=== PATIENT | male | born 1955 | race Two or more races ===

== ENCOUNTER → 2019-07-14 | Day surgery (SDC) | payer OTHER ==
[2019-07-11 11:35] LABS: BASOPHILS % 0.4 % (0.0-1.0); EOSINOPHILS # (AUTO) 0.1 (0.0-0.4); EOSINOPHILS % 1.3 % (0.0-6.0); HEMOGLOBIN 13.7 g/dL (14.0-18.0); LYMPHOCYTES # (AUTO) 1.9 (1.0-3.2); MEAN CORPUSCULAR HEMOGLOBIN 31.8 pg (28-32); MEAN CORPUSCULAR HGB CONC 34.3 g/dL (31-35); MEAN CORPUSCULAR VOLUME 92.8 fL (81-99); MONOCYTES # (AUTO) 0.5 (0.2-0.8); MONOCYTES % 7.6 % (4.4-11.3); NEUTROPHILS # (AUTO) 4.3 (2.1-6.9); NEUTROPHILS % 63.3 % (38.7-80.0); PLATELET COUNT 224 x10e3/uL (140-360); RED BLOOD COUNT 4.31 x10e6/uL (4.3-5.7); RED CELL DISTRIBUTION WIDTH 11.9 % (11.7-14.4)
[~2019-07-14] MED LIST: FENTANYL CITRATE/PF 100MCG/2 ML INJ ONE; HYOSCYAMINE 0.125 MG TAB ONE; LISINOPRIL10 MG PO; MIDAZOLAM HCL 2 MG/2 ML VIAL ONE; PRAVASTATIN SOD40 MG PO; PROPOFOL IV EMULSION 10 MG/ML 50 ML VIAL ONE
[2019-07-14 09:10] VITALS: BP 144/78
--- NOTE | 2019-07-14 09:20 | Operative Report ---
DATE OF PROCEDURE: 07/14/2019 SURGEON: Norm Bautista MD PROCEDURE: Colonoscopy with polypectomy. INDICATIONS FOR COLONOSCOPY: Rectal bleeding. MEDICATIONS: The patient was done under MAC. Please see anesthesiologist's note. PROCEDURE IN DETAIL: With the patient in left lateral decubitus position, a flexible fiberoptic Olympus colonoscope was inserted into the rectum with ease and advanced all the way to the cecum. An approximately 1.5 cm sessile polypoid lesion was noted in the cecum that was removed per hot snare polypectomy and site was hemoclipped x3. The scope was then withdrawn slowly. An approximately 4 mm sessile polyp was noted in the mid ascending colon, that was removed per hot biopsy forceps. The transverse and descending as well as the sigmoid appeared to be within normal limits. An approximately 1.3 cm sessile polyp in the proximal rectum was removed per hot snare polypectomy. The scope was then retroflexed into the distal rectum and post surgical changes were noted. The patient is status post hemorrhoidectomy. The scope was then straightened out it was subsequently withdrawn and an ulcer was noted in the anal canal. Upon withdrawal, there was no active bleeding or stigmata of recent hemorrhage. IMPRESSION: 1. Cecal polyp approximately 1.5 cm in size, removed per hot snare polypectomy and hemoclipped x3. 2. Ascending colon, polyp hot biopsied. 3. Rectal polyp approximately 1.3 cm in size, hot snared. 4. Minute ulcer in anal canal without active bleeding or stigmata of recent hemorrhage. PLAN: Follow up histology. Initiate high-fiber, low-fat diet. Initiate high-fiber supplement. Start Anucort-HC suppositories b.i.d. x10 days and p.r.n. Followup colonoscopy in 3 years. Norm Bautista MD [facility] [place] [facility] [place] /[id number] cc: Higinio Staples MD
== END | disposition home or self-care (01) ==
LOC: OR 06:47
PROVIDERS: ATTEND Internal Medicine Gastroenterology
DX: K92.1 Melena (principal); D12.2 Benign neoplasm of ascending colon; D12.0 Benign neoplasm of cecum; D12.8 Benign neoplasm of rectum; K62.6 Ulcer of anus and rectum; Z98.890 Other specified postprocedural states; I10 Essential (primary) hypertension; Z01.810 Encounter for preprocedural cardiovascular examination
CPT/HCPCS: 36415; 45384; 45385; 85025; 93005; J2250; J3010

== ENCOUNTER → 2023-10-10 | Day surgery (SDC) | payer OTHER ==
[2023-10-04 08:41] LABS: BASOPHILS % 0.5 % (0.0-1.0); EOSINOPHILS # (AUTO) 0.2 (0.0-0.4); EOSINOPHILS % 2.7 % (0.0-6.0); HEMATOCRIT 40.2 % (38.2-49.6); HEMOGLOBIN 13.2 g/dL (14.0-18.0); LYMPHOCYTES # (AUTO) 2.3 (1.0-3.2); LYMPHOCYTES % 38.2 % (18.0-39.1); MEAN CORPUSCULAR HEMOGLOBIN 31.4 pg (28-32); MEAN CORPUSCULAR HGB CONC 32.8 g/dL (31-35); MEAN CORPUSCULAR VOLUME 95.5 fL (81-99); MONOCYTES # (AUTO) 0.6 (0.2-0.8); MONOCYTES % 9.8 % (4.4-11.3); NEUTROPHILS # (AUTO) 2.9 (2.1-6.9); NEUTROPHILS % 48.3 % (38.7-80.0); PLATELET COUNT 205 x10e3/uL (140-360); RED BLOOD COUNT 4.21 x10e6/uL (4.3-5.7); RED CELL DISTRIBUTION WIDTH 12.3 % (11.7-14.4); WHITE BLOOD COUNT 5.91 x10e3/uL (4.8-10.8)
[~2023-10-10] MED LIST changes: -FENTANYL CITRATE/PF 100MCG/2 ML INJ ONE; -HYOSCYAMINE 0.125 MG TAB ONE; +LACTATED RINGER'S 1,000 ML ONE; -MIDAZOLAM HCL 2 MG/2 ML VIAL ONE; -PROPOFOL IV EMULSION 10 MG/ML 50 ML VIAL ONE; +PROPOFOL IV EMULSION 50 ML IV ONE; +VITAMIN D31 ML
[2023-10-10 10:20] VITALS: TEMP 97.5
[2023-10-10 10:50] VITALS: BP 145/89; PULSE 72; RESP 16; O2SAT 99
== END | disposition home or self-care (01) ==
LOC: OR 07:46
PROVIDERS: ATTEND Internal Medicine Gastroenterology
DX: Z09 Encounter for follow-up examination after completed treatment for conditions other than malignant neoplasm (principal); K63.5 Polyp of colon; I45.10 Unspecified right bundle-branch block; I10 Essential (primary) hypertension; E78.5 Hyperlipidemia, unspecified; G62.9 Polyneuropathy, unspecified; Z01.810 Encounter for preprocedural cardiovascular examination; Z01.812 Encounter for preprocedural laboratory examination; Z79.899 Other long term (current) drug therapy
CPT/HCPCS: 36415; 45385; 85025; 93005; J2704; J7121; 45378